=== PATIENT | female | born 1985 | race Hispanic/Latino ===

== ENCOUNTER 2017-10-03 22:16 | Emergency (ER) | payer OTHER, SELFPAY ==
[2017-10-03] MEDS ORDERED: Acetaminophen 500 MG TAB ONE (22:45)
== END 2017-10-03 23:30 | disposition home or self-care (01) ==
LOC: ERS 22:16
DX: J11.1 Influenza due to unidentified influenza virus with other respiratory manifestations (principal)
CPT/HCPCS: 99283

== ENCOUNTER 2018-09-30 22:03 | Emergency (ER) | payer SELFPAY ==
--- NOTE | 2018-09-30 22:47 | RAD ---
RADIOGRAPH CHEST 2 VIEWS: Date: 09/30/2018 Time: 10:39 p.m. HISTORY: A 33-year-old female with productive cough and chills. COMPARISON: 09/15/2012 FINDINGS: There is a new finding of a small focal left lower lobe infiltrate. The rest of the lungs are clear. The cardiomediastinal silhouette and hilar shadows are normal. No pleural effusion or pneumothorax . IMPRESSION: Evidence for left lower lobe pneumonia. KALEY [] POS: [facility]
== END 2018-09-30 23:05 | disposition home or self-care (01) ==
LOC: ERS 22:03
DX: J18.9 Pneumonia, unspecified organism (principal)
CPT/HCPCS: 71046; 87804

== ENCOUNTER 2018-11-26 09:47 | Emergency (ER) | payer SELFPAY | END 2018-11-26 11:02 | disposition home or self-care (01) | LOC: ERS 09:47 | DX: J10.1 Influenza due to other identified influenza virus with other respiratory manifestations (principal) | CPT/HCPCS: 87804; 99283 ==

== ENCOUNTER 2019-07-05 21:42 | Emergency (ER) | payer SELFPAY ==
[2019-07-05 22:18] LABS: #Basophils 0.1 thou/uL (0.0-0.2); #Eosinphils 0.6 thou/uL (0.0-0.7); #Lymphocytes 3.9 thou/uL (1.20-3.40); #Monocytes 0.8 thou/uL (0.11-0.59); #Neutrophils 5.1 thou/uL (1.40-6.50); %Basophils 0.7 % (0.0-1.0); %Eosinophils 5.6 % (0.0-10.0); %Lymphocytes 37.5 % (21.0-51.0); %Monocytes 7.5 % (0.0-10.0); %Neutrophils 48.7 % (42.0-75.0); Hemoglobin 14.9 g/dL (12.0-16.0); Mean Corpuscular HGB CONC 34.8 g/dL (32.0-36.0); Mean Corpuscular Hemoglobin 30.4 pg (27.0-31.0); Mean Corpuscular Volume 87.4 fL (78.0-98.0); Mean Platelet Volume 8.2 fL (7.4-10.4); Platelet Count 249 thou/uL (130-400); RBC Distribution Width 12.2 % (11.5-14.5); Red Blood Cell (RBC) Count 4.91 mill/uL (4.20-5.40); White Blood Cell (WBC) Count 10.5 thou/uL (4.8-10.8)
[2019-07-05 22:39] LABS: ALT (SGPT) 89 U/L (8-55); AST (SGOT) 35 U/L (5-34); Albumin 4.2 g/dL (3.5-5.0); Alkaline Phosphatase 101 U/L (40-110); Anion Gap 14 mmol/L (10-20); BUN (Urea Nitrogen) 12 mg/dL (7.0-18.7); Bilirubin, Total 0.3 mg/dL (0.2-1.2); Calc. Creatinine Clearance 0 mL/min (70-130); Calcium 9.7 mg/dL (7.8-10.44); Carbon Dioxide 24 mmol/L (22-29); Chloride 101 mmol/L (98-107); Estimated GFR-MDRD 84; Globulin 3.5 g/dL (2.4-3.5); Glucose 346 mg/dL (70-105); Potassium 3.7 mmol/L (3.5-5.1); Protein, Total 7.7 g/dL (6.0-8.3); Sodium 135 mmol/L (136-145)
--- NOTE | 2019-07-05 23:26 | RAD ---
EXAM: Single view of the chest HISTORY: Chest pain COMPARISON: 09/15/2012 FINDINGS: Single view of the chest shows a normal sized cardiomediastinal silhouette. There is no kentrell dence of consolidation, mass, or pleural effusion. The bones are unremarkable. IMPRESSION: No evidence of acute cardiopulmonary disease
[2019-07-05] MEDS ORDERED: hydrOXYzine 25 MG TAB ONE (23:53)
[2019-07-05] MEDS ORDERED: Ketorolac Tromethamine 30 MG/ML VIAL ONE (23:54)
== END 2019-07-06 00:09 | disposition home or self-care (01) ==
LOC: ERS 21:42
DX: R07.9 Chest pain, unspecified (principal); E11.9 Type 2 diabetes mellitus without complications; I10 Essential (primary) hypertension
CPT/HCPCS: 36415; 71045; 80053; 84484; 85025; 93005; J1885

== ENCOUNTER 2024-06-09 09:40 | Emergency (ER) | payer SELFPAY | END 2024-06-09 11:16 | disposition home or self-care (01) | LOC: ERS 09:40 | DX: H00.012 Hordeolum externum right lower eyelid (principal); L03.213 Periorbital cellulitis; E11.9 Type 2 diabetes mellitus without complications | CPT/HCPCS: 99283 ==

== ENCOUNTER 2024-10-16 08:12 | Emergency (ER) | payer SELFPAY, OTHER ==
[2024-10-16] MEDS ORDERED: Cyclobenzaprine 10 MG TAB ONE (09:42)
== END 2024-10-16 11:38 | disposition home or self-care (01) ==
LOC: ERS 08:12
DX: M54.2 Cervicalgia (principal); V89.2XXA Person injured in unspecified motor-vehicle accident, traffic, initial encounter; Y93.89 Activity, other specified
CPT/HCPCS: 72040; 99284